=== PATIENT | male | born 1980 | race American Indian/Alaskan Native ===

== ENCOUNTER 2016-12-01 19:42 | Emergency (ER) | payer OTHER ==
[2016-12-01 21:02] LABS: Basophils % (Auto) 0.6 % (0.0-1.8); Eosinophils % (Auto) 0.6 % (0.0-4.3); Hematocrit 48.2 % (35.5-45.6); Hemoglobin 16.6 gm/dl (11.8-15.2); Mean Corpuscular HGB Conc 34 % (32-34); Mean Corpuscular Hemoglobin 30 pg (28-32); Mean Corpuscular Volume 86 fl (84-94); Platelet Count 286 K/mm3 (140-440); Red Blood Count 5.59 M/mm3 (3.65-5.03); Red Cell Distribution Width 12.7 % (13.2-15.2); White Blood Count 8.5 K/mm3 (4.5-11.0)
[2016-12-01 21:15] LABS: Alanine Aminotransferase 11 units/L (7-56); Albumin 4.6 g/dL (3.9-5); Albumin/Globulin Ratio 1.6 %; Alkaline Phosphatase 125 units/L (35-129); Anion Gap 23 mmol/L; BUN/Creatinine Ratio 14.44; Blood Urea Nitrogen 13 mg/dL (9-20); Calcium 9.6 mg/dL (8.4-10.2); Carbon Dioxide 22 mmol/L (22-30); Chloride 88.1 mmol/L (98-107); Potassium 4.6 mmol/L (3.6-5.0); Sodium 128 mmol/L (137-145); Total Protein 7.5 g/dL (6.3-8.2)
[2016-12-01 21:24] LABS: Bilirubin,Urine NEG (Negative); Blood,Urine NEG (Negative); Ketones,Urine TR mg/dL (Negative); Leukocyte Esterase,Urine NEG (Negative); Nitrite,Urine NEG (Negative); Protein,Urine <15 mg/dL mg/dL (Negative); Urobilinogen,Urine < 2.0 mg/dL (<2.0)
[2016-12-01 21:26] LABS: WBC,Urine < 1.0 /HPF (0.0-6.0)
[2016-12-01 21:27] LABS: Glucose 582 mg/dL (75-100)
[2016-12-01 23:20] VITALS: BP 117/64
[2016-12-01] MEDS ORDERED: NACL 0.9% 1000 ML 1,000 ML ONE (23:22)
[2016-12-01] MEDS ORDERED: NACL 0.9% 1000 ML 1,000 ML IV ONE (23:37)
[2016-12-02] MEDS ORDERED: NACL 0.9% 1000 ML 1,000 ML IV ONE (00:01)
--- NOTE | 2016-12-02 00:03 | Emergency Department Report ---
ED General Adult HPI - General Chief complaint: Hyperglycemia Stated complaint: HIGH BLOOD GLUCOSE Time Seen by Provider: 12/02/16 00:00 Source: patient Mode of arrival: Ambulatory Limitations: No Limitations - History of Present Illness Initial comments: 36-year-old male with history of hypertension, diabetes insulin-dependent present today because of polyuria, polydipsia and blurry vision. Patient states that he has been out of his long-acting insulin for the last 1-2 weeks. He is also not taken any of his short-acting insulin today. He is currently under police custody for a misdemeanor. Denies any fevers, chills, shortness breath, cough, bowel pain, vomiting, diarrhea. Denies any dysuria associated with this. Severity scale (0 -10): 6 - Related Data Previous Rx's Medication Instructions Recorded Last Taken Type Insulin Aspart [NovoLOG 100 7 units SQ TID #30 day 12/14/13 Unknown Rx UNITS/ML VIAL] Insulin Glargine [Lantus] 20 unit SUB-Q BID #5 ml 12/02/16 Unknown Rx Insulin Lispro [Humalog Kwikpen 17 unit SQ PC #5 insuln.pen 12/02/16 Unknown Rx U-100] Allergies Allergy/AdvReac Type Severity Reaction Status Date / Time No Known Allergies Allergy Unverified 12/14/13 08:58 ED Review of Systems ROS: Stated complaint: HIGH BLOOD GLUCOSE Other details as noted in HPI Comment: All other systems reviewed and negative Constitutional: denies: chills, fever ENT: denies: ear pain Respiratory: denies: cough, shortness of breath Cardiovascular: denies: chest pain Gastrointestinal: denies: abdominal pain, vomiting Genitourinary: denies: dysuria Skin: denies: rash Psychiatric: denies: anxiety ED Past Medical Hx - Past Medical History Previous Medical History?: Yes Hx Hypertension: Yes (Controlled with MEDS) Hx Diabetes: Yes Hx Renal Disease: Yes (Renal Failure (no dialysis at this time)) - Surgical History Past Surgical History?: Yes Additional Surgical History: hemorrhoid, broken nose - Social History Smoking Status: Light Tobacco Smoker Substance Use Type: None - Medications Home Medications: Home Medications Medication Instructions Recorded Confirmed Last Taken Type Insulin Aspart [NovoLOG 100 7 units SQ TID #30 day 12/14/13 Unknown Rx UNITS/ML VIAL] Insulin Glargine [Lantus] 20 unit SUB-Q BID #5 ml 12/02/16 Unknown Rx Insulin Lispro [Humalog Kwikpen 17 unit SQ PC #5 insuln.pen 12/02/16 Unknown Rx U-100] ED Physical Exam - General Limitations: No Limitations General appearance: alert, in no apparent distress - Head Head exam: Present: atraumatic - Eye Eye exam: Present: normal appearance - ENT ENT exam: Present: mucous membranes dry - Respiratory Respiratory exam: Present: normal lung sounds bilaterally. Absent: respiratory distress - Cardiovascular Cardiovascular Exam: Present: regular rate, normal rhythm - GI/Abdominal GI/Abdominal exam: Present: soft. Absent: distended, tenderness - Neurological Exam Neurological exam: Present: alert, oriented X3, CN II-XII intact. Absent: motor sensory deficit - Psychiatric Psychiatric exam: Present: normal affect - Skin Skin exam: Present: intact ED Course Vital Signs 12/01/16 12/01/16 12/01/16 20:34 20:37 23:18 Temperature 98.8 F 98.8 F Pulse Rate 104 H 104 H 76 Respiratory 20 20 Rate Blood Pressure 140/104 Blood Pressure 140/104 117/64 [Right] O2 Sat by Pulse 98 98 98 Oximetry - Reevaluation(s) Reevaluation #1: 12/02/16 00:45 Repeat fs at 296, stable for discharge ED Medical Decision Making - Lab Data Result diagrams: 12/01/16 20:53 12/01/16 20:53 - Medical Decision Making labs preordered glu of 582, no acidosis and trace ketones, not consistent with DKA; hyponatremia but normalizes if corrected for serum glucose IVF, insulin ordered Patient appears reliable in knowing his medications states he is on lantus 20 U BID and humalog 17 Units TID AC, will give rx for these meds Critical care attestation.: If time is entered above; I have spent that time in minutes in the direct care of this critically ill patient, excluding procedure time. ED Disposition Clinical Impression: Hyperglycemia Disposition: DISCHARGED TO HOME OR SELFCARE Is pt being admited?: No Does the pt Need Aspirin: No Condition: Stable Instructions: Diabetic Hyperglycemia (ED) Additional Instructions: Please follow up with the primary care physician in the next 3-5 days. Return to the ER if your symptoms worsen or you develop new symptoms. Your urine also showed 2 red blood cells, this should be followed up with the primary care physician and retested as persistent blood in the urine could be due to cancer. Prescriptions: Insulin Glargine [Lantus] 20 unit SUB-Q BID #5 ml Insulin Lispro [Humalog Kwikpen U-100] 17 unit SQ PC #5 insuln.pen Referrals: PRIMARY CARE, [Primary Care Provider] - 3-5 Days [facility] [Outside] - 3-5 Days [facility] [Outside] - 3-5 Days Time of Disposition: 00:45
== END 2016-12-02 00:56 | disposition home or self-care (01) ==
LOC: EEVIPCON 19:42 → ED 19:42
DX: E11.65 Type 2 diabetes mellitus with hyperglycemia (principal); I10 Essential (primary) hypertension; Z72.0 Tobacco use; Z79.4 Long term (current) use of insulin
CPT/HCPCS: 36415; 80053; 81001; 82805; 82962; 85025; 96361; 96374; 99284; J7030; J1815